=== PATIENT | male | born 1995 | race Caucasian/White ===

== ENCOUNTER 2022-12-18 09:25 | Emergency (ER) | payer OTHER, SELFPAY ==
--- NOTE | ~2022-12-18 | XR_ITS ---
Left Knee Technique: AP, lateral, and sunrise views were obtained. Clinical History: Pain, trauma Findings: No fracture or dislocation is seen. Bipartite patella noted. Osseous alignment is anatomic. Joint spaces are preserved without degenerative or erosive change. Soft tissues are unremarkable. No joint effusion is seen. Impression: No acute fracture or dislocation. Bipartite patella, normal variant. Reviewed, dictated and finalized at location . Impression: No acute fracture or dislocation. Bipartite patella, normal variant.
[2022-12-18 09:31] VITALS: BP 167/88; PULSE 88; RESP 16; TEMP 36.2; O2SAT 100
--- NOTE | 2022-12-18 10:41 | ED.GENADULT ---
HPI - General Adult General Chief complaint: Wound/Laceration Stated complaint: laceration to the L. knee Time Seen by Provider: 12/18/22 09:28 History of Present Illness HPI narrative: Sergio Stewart is a 27 y/o male who presents with reports of being at work and a piece of tin fell hitting his left knee and causing a laceration across his left knee. Denies fall/ denies any other injuries Related Data Allergies Allergy/AdvReac Type Severity Reaction Status Date / Time penicillin V AdvReac Rash Verified 12/18/22 10:54 Review of Systems Review of Systems: CONSTITUTIONAL: Denies fever, chills, or sweats. EYES: Denies visual changes, redness, or discharge. ENT: Denies rhinorrhea, congestion, sore throat, or otalgia. CARDIOVASCULAR: Denies chest pain, palpitations, or edema. RESPIRATORY: Denies cough or dyspnea. GASTROINTESTINAL: Denies abdominal pain, nausea, vomiting, or diarrhea. GENITOURINARY: Denies dysuria or hematuria. SKIN: Denies rash or itching. MUSCULOSKELETAL: Denies back pain, reports of mild left knee pain 3 or 4 out of 10 NEUROLOGIC: Denies headache, numbness, dizziness, or weakness. PSYCHIATRIC: Denies anxiety or depression. Exam Narrative: GENERAL: Well-appearing, well-nourished, and in no acute distress. HEAD: Normocephalic, atraumatic. EYES: PERRLA and EOMI. ENT: Nares clear, no rhinorrhea or epistaxis. Mucous membranes moist. NECK: Supple. No adenopathy or masses. CHEST: Clear to auscultation. No respiratory distress. No wheezes rales or rhonchi HEART: Regular rate and rhythm. No murmur heard. Normal peripheral pulses. ABDOMEN: Soft, nontender, nondistended, normal active bowel sounds. EXTREMITIES: Normal range of motion, 3 cm linear Laceration noted across top of left knee, bleeding controlled. SKIN: Warm, dry, no rash. NEURO: No focal deficits. Alert and oriented x3. PSYCH: Normal mood and affect. Course Vital Signs Vital signs: Vital Signs Temperature 36.2 C L 12/18/22 09:31 Pulse Rate 88 12/18/22 09:31 Respiratory Rate 16 12/18/22 09:31 Blood Pressure 167/88 H 12/18/22 09:31 Pulse Oximetry 100 12/18/22 09:31 Oxygen Delivery Room Air 12/18/22 09:31 Temperature 36.2 C L 12/18/22 09:31 Pulse Rate 88 12/18/22 09:31 Respiratory Rate 16 12/18/22 09:31 Blood Pressure 167/88 H 12/18/22 09:31 Pulse Oximetry 100 12/18/22 09:31 Oxygen Delivery Room Air 12/18/22 09:31 vitals reviewed by me. Procedures Laceration Laceration 1: Date: 12/18/22 Time: 11:36 Site: lower extremity Side (If applicable): left Size (cm): 3 Description: linear Local Anesthetic: lidocaine 2% and with epi Amount of anesthesia used (mL): 3 Pre-repair: wound explored, irrigated and irrigated extensively ====== Skin Level ====== Skin layer closed with: ignacio (6 ) ====== Subcutaneous Layer ====== ====== Muscle Layer ====== ====== Tendon Layer ====== Dressing: sterile dressing placed Medical Decision Making MDM Narrative Medical decision making narrative: 3 CM laceration across left knee No active bleeding X ray negative for acute findings no fracture no foreign body visualization of the depth of wound noted. ROM intact Neurovascular intact Using shared decision making, offered to place sutures or ignacio, pt reports he would prefer ignacio Plan to anesthetize, cleans and close wound patient is updated on TDap Wound irrigated by Cigarette Stamper I then anesthetized wound and thoroughly irrigated with wound spinneret cleaner Betadine then used to clean wound prior to placing ignacio Patient tolerated procedure well Sterile dressing placed Patient to be d/c home Differential Diagnosis Differential Diagnosis: Knee fracture/ Knee infection/ Vital Signs Vital Signs: Vital Signs Temperature 36.2 C L 12/18/22 09:31 Pulse Rate 88 12/18/22 09:31 Respir
[2022-12-18] MEDS: ACETAMINOPHEN 500 MG TABLET 1000 MG PO (10:55)
[2022-12-18] MEDS: LIDO 1%/EPINEPHRINE 1:100,000 10 ML VIAL INFILTRATE (10:56)
--- NOTE | 2022-12-18 11:17 | PC.NURSE ---
health service coordinator at bedside for laceration repair.
== END 2022-12-18 11:44 | disposition home or self-care (01) ==
PROVIDERS: Emergency Provider Nurse Practitioner Family
DX: S81.012A Laceration without foreign body, left knee, initial encounter (principal); W20.8XXA Other cause of strike by thrown, projected or falling object, initial encounter
CPT/HCPCS: 12002; 73564; 99283; A9270